=== PATIENT | male | born 1940 | race Caucasian/White ===

== ENCOUNTER → 2018-04-06 | Outpatient (CLI) | END | disposition home or self-care (01) ==

== ENCOUNTER 2018-04-16 06:32 | Observation (INO) | payer MEDICARE, OTHER ==
[~2018-04-16] VITALS: Ht 172.7 cm; Wt 65.0 kg
[2018-04-16] VITALS (27 sets, daily range): BP systolic 95–157; BP diastolic 57–80; PULSE 44–64; RESP 12–23; Ht 172.7 cm; Wt 65.0 kg
[~2018-04-16 06:32] MED LIST: DEXT1CAP PO; LACT1CAP57 PO; LMFO1TAB PO; MEMA10TA PO; MIRT30TA PO; PANT40TA4 PO; PROP20TA4 PO; QUET100T PO; ZALE10CA PO
[2018-04-16] MEDS ORDERED: POLYMYXIN B 500000 UNIT INJ ONE (06:57)
[2018-04-16] MEDS ORDERED: DEXAMETHASONE 4 MG/ML 1 ML INJ IV ONE (07:00)
[2018-04-16] MEDS ORDERED: CLINDAMYCIN 900 MG/50 ML D5W IVPB IVPB ONE (07:00)
[2018-04-16] MEDS ORDERED: ACETAMINOPHEN 500 MG TAB PO ONE (07:00)
[2018-04-16] MEDS ORDERED: CLINDAMYCIN 600 MG/D5W (PMX) 50 ML IVPB ONE (07:00)
[2018-04-16] MEDS ORDERED: LACTATED RINGER'S 1,000 ML IV SCH (07:00)
[2018-04-16] MEDS ORDERED: BACITRACIN 50000 UNITS INJ ONE (07:11)
[2018-04-16] MEDS ORDERED: ACETAMINOPHEN 1000MG/100ML IV 100 ML IVPB SCH (08:00)
[2018-04-16] MEDS ORDERED: NALOXONE (0.4 MG/ML) INJ IV PRN ×2 (08:30→09:30)
[2018-04-16] MEDS ORDERED: ONDANSETRON 4 MG INJ IV PRN ×2 (08:30)
[2018-04-16] MEDS ORDERED: HYDROmorphONE 0.5 MG/0.5 ML SYG IV PRN ×2 (08:30)
[2018-04-16] MEDS ORDERED: hydrALAzine 20 MG INJ IV PRN (08:30)
[2018-04-16] MEDS ORDERED: MIDAZOLAM 1 MG/ML 2 ML INJ IV PRN (08:30)
[2018-04-16] MEDS ORDERED: KETOROLAC 30 MG INJ IV PRN (08:30)
[2018-04-16] MEDS ORDERED: TRANEXAMIC ACID 1,000 MG in D5W 100 ML AT INCISION X1 IVPB ONE (08:30)
[2018-04-16] MEDS ORDERED: LABETALOL HCL 20MG INJ IV PRN (08:30)
[2018-04-16] MEDS ORDERED: KETOROLAC 15 MG INJ IV PRN (08:30)
[2018-04-16] MEDS ORDERED: NALBUPHINE HCL (10 MG/1 ML) INJ IV PRN (08:30)
[2018-04-16] MEDS ORDERED: ALBUTEROL 0.083% (NEB) 2.5 MG/3 ML AMP HHN PRN (08:30)
[2018-04-16] MEDS ORDERED: FENTAnyl 50 MCG/ML VIAL IV PRN ×3 (08:30)
[2018-04-16] MEDS ORDERED: EPHEDrine SULFATE 50 MG/5 ML SYG IV PRN (08:30)
[2018-04-16] MEDS ORDERED: IPRATROPIUM (NEB) 0.5 MG/2.5 ML AMP HHN PRN (08:30)
[2018-04-16] MEDS ORDERED: OXYCODONE/ACETAMINOPHEN (5/325) TAB PO PRN ×2 (08:30)
[2018-04-16] MEDS ORDERED: DIPHENHYDRAMINE 50 MG INJ IV PRN ×3 (08:30→09:30)
[2018-04-16] MEDS ORDERED: TRIMETHOBENZAMIDE 100 MG/ML VIAL IM PRN ×2 (08:30)
[2018-04-16] MEDS ORDERED: MEPERIDINE 25 MG INJ IV PRN (08:30)
[2018-04-16] MEDS ORDERED: HYDROmorphONE 1 MG/5 ML IV SYRINGE IV PRN ×3 (08:30)
--- NOTE | 2018-04-16 08:33 | PREAC ---
Date/Time of Note Date/Time of Note DATE: 04/16/18 TIME: 08:29 Anesthesia Eval and Record Evaluation Time Pre-Procedure Interview DATE: 04/16/18 TIME: 08:29 Age 77 Sex male NPO: 8 hrs Preoperative diagnosis RIGHT KNEE PRIMARY OA Planned procedure RIGHT TKA Past Medical History Past Medical History: Includes Endo: Hypothyroid Renal: CKD GI: GERD Surgery & Anesthesia Issues No known issue Meds Anticoagulation: No Beta William within 24 hr: No Reason Beta William not given: Pt. not on B-William Reported Medications Propranolol Hcl* (Propranolol Hcl*) 20 Mg Tablet, 20 MG PO HS, TAB 04/06/18 Zaleplon (Zaleplon) 10 Mg Capsule, 10 MG PO HS PRN for INSOMNIA, CAP 04/06/18 Quetiapine Fumarate* (Seroquel*) 100 Mg Tablet, 100 MG PO HS, #30 TAB 04/06/18 Mirtazapine* (Remeron*) 30 Mg Tablet, 30 MG PO DAILY, TAB 04/06/18 Memantine* (Namenda*) 10 Mg Tablet, 10 MG PO BID, #60 TAB 04/06/18 Lmfol Ca/Acetyl/Mb12/Algal Oil (CEREFOLIN NAC CAPLET) 1 Each Tablet, 1 EACH PO, TAB 04/06/18 Lactobacillus Rhamnosus* (Culturelle*) 1 Each Cap.sprink, 1 CAP PO DAILY, CAP 04/06/18 Pantoprazole* (Pantoprazole*) 40 Mg Tablet.dr, 40 MG PO BID, TAB 04/06/18 Dextromethorphan Hbr/Quinidine (NUEDEXTA 20-10 MG CAPSULE) 1 Each Capsule, 1 EACH PO, CAP 04/06/18 Current Medications Lactated Ringer's 1,000 ml @ 125 mls/hr Q8H IV ; Start 04/16/18 at 07:00 Tranexamic Acid 1000 mg/Dextrose 110 ml @ 330 mls/hr AT INCISION ONCE IVPB ; Start 04/16/18 at 08:30; Stop 04/16/18 at 08:49 Tranexamic Acid 1000 mg/Dextrose 110 ml @ 330 mls/hr AT CLOSURE ONCE IVPB ; Start 04/16/18 at 11:00; Stop 04/16/18 at 11:19 Ropivacaine/ Clonidine/ Epinephrine/ Ketorolac Tromethamine/ Sodium Chloride INTRA-OP ONCE IRR ; Start 04/16/18 at 08:30; Stop 04/16/18 at 08:31 Acetaminophen 100 ml @ 400 mls/hr ONCE IVPB Last administered on 04/16/18at 07:49; Admin Dose 400 MLS/HR; Start 04/16/18 at 08:00; Stop 04/16/18 at 11:00 Meds reviewed: Yes Allergies Coded Allergies: Penicillins (Verified Allergy, Severe, TONGUE SWELLING, 04/16/18) Allergies Reviewed: Yes Labs/Studies Labs Reviewed: Reviewed by anesthesiologist Blood Bank Test 04/16/18 07:20 Blood Type A POSITIVE test: N/A Studies: ECG (LVH), CXR (NAPD) Pre-procedure Exam Last vitals Vital Signs Date Temp Pulse Resp B/P (MAP) Pulse Ox O2 O2 Flow FiO2 Time Delivery Rate 04/16/18 97.3 47 18 110/62 98 Room Air 07:33 (78) Airway: Adequate mouth opening, Adequate thyromental dist Mallampati: Mallampati II Teeth: Normal Lung: Normal Heart: Normal ASA Physical Status ASA physical status: 2 Emergency: None Planned Anesthetic General/MAC: ETT Neuraxial: Spinal Nerve block: Femoral (right) Planned Pain Management Sub-arachniod narcotics, Single shot nerve block, Parenteral pain med Pre-operative Attestations Prior to commencing anesthesia and surgery, the patient was re-evaluated, there was verification of: *The patient's identity *The results of appropriate recent lab work and preoperative vital signs *The above evaluation not changing prior to induction *Anesthetic plan, risk benefits, alternative and complications discussed with patient/family; questions answered; patient/family understands, accepts and wishes to proceed. Kenneth Headley M.D. Apr 16, 2018 08:33
[2018-04-16] MEDS ORDERED: ONDANSETRON 4 MG INJ ONE (08:35)
[2018-04-16] MEDS ORDERED: PROPOFOL 20 ML ONE (08:35)
[2018-04-16] MEDS ORDERED: ROCURONIUM 50 MG INJ ONE (08:35)
[2018-04-16] MEDS ORDERED: CEFAZOLIN 1 GM INJ ONE (08:35)
[2018-04-16] MEDS ORDERED: MIDAZOLAM 1 MG/ML 2 ML INJ ONE (08:35)
[2018-04-16] MEDS ORDERED: NEOSTIGMINE 3 MG/3 ML SYRINGE ONE (08:35)
[2018-04-16] MEDS ORDERED: FENTAnyl 50 MCG/ML VIAL ONE (08:35)
[2018-04-16] MEDS ORDERED: GLYCOPYRROLATE 0.4 MG INJ ONE (08:35)
[2018-04-16] MEDS ORDERED: ROPIVACAINE 0.5 % 30 ML VIAL ONE (08:40)
[2018-04-16] MEDS ORDERED: morphine SULFATE/PF (10 MG/10 ML) INJ ONE (08:40)
--- NOTE | 2018-04-16 09:11 | HPN ---
Date/Time of Note Date/Time of Note DATE: 04/16/18 TIME: 09:11 Interval H&P Admission Note Pt. seen H&P reviewed: No system changes SHEYLA CANADA Apr 16, 2018 09:11
--- NOTE | 2018-04-16 09:29 | PDOCDIS ---
Discharge Instructions DIAGNOSIS Discharge Diagnosis Status post right total knee arthroplasty CONDITION [id number] Patient Condition: [id number] Good HOME CARE INSTRUCTIONS: [id number] Diet Instructions: [id number] Regular ACTIVITY: [id number] Activity Restrictions: [id number] Slowly Increase Activity Rest between Activity Avoid heavy lifting No Sexual Activity Do not Drive Do not operate Machinery Do not operate Power Tool Avoid Heavy Housework Keep Limb Elevated (2-3 pillows underneath the right foot only so that leg remains in full extension while resting.) Weight Bearing (Weight-bear as tolerated using front-wheeled walker) [id number] Bathing Restrictions: [id number] Shower (Prineo dressing to remain on until seen postoperatively. Okay to shower with this dressing. No bathing or submersion in water.) FOLLOW UP/APPOINTMENTS Follow-up Plan Follow-up at postoperative appointment provided to you at your preoperative exam SAMEERA ROMERO PA-C Apr 16, 2018 09:29
[2018-04-16] MEDS ORDERED: ASPIRIN (EC) 325 MG TAB PO ONE (09:30)
[2018-04-16] MEDS ORDERED: NA PHOSPHATE/BIPHOS 133 ML ENEMA PR PRN (09:30)
[2018-04-16] MEDS ORDERED: SENNA/DOCUSATE NA (8.6MG/50MG) TAB PO PRN (09:30)
[2018-04-16] MEDS ORDERED: MAGNESIUM HYDROXIDE 30ML CUP PO PRN (09:30)
[2018-04-16] MEDS ORDERED: NACL 0.9% 3 ML SYG IV SCH (09:30)
[2018-04-16] MEDS ORDERED: BISACODYL 10 MG SUPP PR PRN (09:30)
[2018-04-16] MEDS ORDERED: oxyCODONE 5 MG TAB PO PRN ×3 (09:30)
[2018-04-16] MEDS ORDERED: DOCUSATE SODIUM 100 MG CAP PO ONE (09:30)
--- NOTE | 2018-04-16 10:32 | SIPON ---
Date/Time of Note Date/Time of Note DATE: 04/16/18 TIME: 10:30 Operative Report Preoperative Diagnosis right knee DJD Postoperative Diagnosis same Operation/Procedure Performed Right TKA Surgeon see signature line therapeutic recreation assistant Francisco STARR Anesthesia: spinal Estimated blood loss: 150 - 200 ml's Transfusion Required none Specimen bone Grafts/Implants Attune knee, 6 femur, 7 tibia, 10 poly, 38 patella Complications none SHEYLA CANADA Apr 16, 2018 10:32
[2018-04-16] MEDS ORDERED: TRANEXAMIC ACID 1,000 MG in D5W 100 ML AT CLOSURE X1 IVPB ONE (11:00)
--- NOTE | 2018-04-16 11:00 | NUR ---
NURSING RR RECEIVED PT FROM OR NOT IN ANY DISTRESS ,PT S/P RIGHT TOTAL KNEE REPLACEMENT .NEURO VASCULAR CHECK DONE AND IT IS WNL .PT HAS DSG ON TO R KNEE WITH [facility] .IV TO LEFT HAND G20 NEEDLE WITH LR INFUSING WELL .DENIES ANY PIN OR DISCOMFORT AT THIS MOMENT .
--- NOTE | 2018-04-16 11:12 | PAC ---
Date/Time of Note Date/Time of Note DATE: 04/16/18 TIME: 11:11 Post-Anesthesia Notes Post-Anesthesia Note Last documented vital signs Vital Signs Date Temp Pulse Resp B/P (MAP) Pulse Ox O2 O2 Flow FiO2 Time Delivery Rate 04/16/18 97.3 47 18 110/62 98 Room Air 07:33 (78) Activity: WNL Respiratory function: WNL Cardiovascular function: WNL Mental status: Baseline Pain reasonably controlled: Yes Hydration appropriate: Yes Nausea/Vomiting absent: Yes Comments VSS Temp 98F RICH HIGUERA DRY WALL APPLICATOR Apr 16, 2018 11:12
--- NOTE | 2018-04-16 12:15 | NUR ---
TRANSFER PT TRANSFER TO [facility] IN STABLE CONDITION ,REPORT GIVEN TO RN CARE PROVIDED PER [facility] STANDARDS. PT WAS BRADYCARDIC UPON TRANSFER BUT ASYMPTOMATIC WAS EVALUATED BY CAROL GODFREY IN RECOVERY ROOM AND SHE OK PATIENT TO BE TRANSFERRED TO M/S FLOOR .
[2018-04-16] MEDS: SOD CHLORIDE 0.9% 1,000 ML IV SCH (12:35)
--- NOTE | 2018-04-16 12:47 | NUR ---
Patient has arrived to 4W. he is alert and pleasantly confused, requires frequent reorientation. Heart rate from 48-52 per continuous monitor. Patient reports this is his norm. BOILERMAKER LOFTSMAN Johnson checked with Dr. Dejesus prior to unit transfer and this report writer spoke with CAROL Lopez, who reported patient was ok to transfer to unit with heart rate as this is his normal. Patient oriented to unit, tolerating po fluids, Called dietary to request lunch tray. Used IS, able to reach 2000ml, will require reminders as patient is pleasantly forgetful. Bed in low, locked position. Addendum: 04/16/18 at 1251 by ILIANA VIERA RN Oriented to call light and room. Bed is close to nurses station.
--- NOTE | 2018-04-16 12:58 | CONS ---
Date/Time of Note Date/Time of Note DATE: 04/16/18 TIME: 12:55 Assessment/Plan Assessment/Plan Hospital Course SUBJECTIVE: Doing in bed comfortably. No acute distress. OBJECTIVE: Vital signs-see below PHYSICAL EXAM: Constitutional: Well-developed, adequately built, lying in bed comfortably. Psych: nl mood/affect, no complaints Head: atraumatic, normocephalic Eyes: nl conjunctiva, nl sclera ENMT: mucosa pink and moist, nl external ears & nose Neck: non-tender, supple Respiratory: clear to auscultation, normal air movement Cardiovascular: nl pulses, regular rate and rhythm Gastrointestinal: non-tender, soft, bowel sounds active in all 4 quadrants. Musculoskeletal/extremities: nl extremities to inspection, motor strength equal bilaterally, no focal deficit. Normal pulses,no cyanosis, no edema. Neurological: Alert oriented 3,nl speech, nl strength Skin: nl turgor ASSESSMENT/PLAN: 77-year-old male with dementia, symptomatic bradycardia, right knee DJD, brought in for elective right total knee arthroplasty. 1. Right knee degenerative joint disease, status post right total knee arthroplasty 04/16/2018. -Postoperative anticoagulation, weightbearing, pain management per orthopedic surgery. 2. Asymptomatic bradycardia -Patient's heart rate is at baseline or even better. No workup indicated. Di scontinue propranolol that patient takes at home for unclear reasons. 3. Dementia -Resume home medications DVT prophylaxis: Aspirin per orthopedic surgery recommendation Due to prophylaxis: Protonix CODE STATUS: Full code Diet: Regular Thank you for allowing us to partake in the care of this patient. Approximately 60 m spent on this consultation. Patient was seen in collaboration with Dr. Blackmon. Consultation Date/Type/Reason Admit Date/Time Apr 16, 2018 at 09:30 Type of Consult Hospitalist Reason for Consultation medical management Requesting Provider: SHEYLA CANADA Hx of Present Illness This is a 77-year-old male with a history of dementia, right knee degenerative joint disease, was brought in for elective right total knee arthroplasty. Patient underwent right total knee arthroplasty on 04/16/2018. Hospitalist consultation was requested for postoperative medical management. Patient was seen postoperatively in PACU. He denied chest pain, palpitation, shortness of breath, nausea, vomiting, abdominal pain, dizziness, numbness, tingling or other constitutional symptoms. Patient's EKG shows sinus bradycardia at 47-50 and per patient his baseline heart rate is 40. He is not symptomatic. Stable blood pressure and oxygen saturation. A 12 point review of system was assessed and is negative other than what is mentioned in the HPI. Past Medical History See HPI Medications Current Medications Oxycodone/ Acetaminophen (Percocet (5/ 325)) 1 tab PACU ORDER PRN PO PAIN LEVEL 1-5; Start 04/16/18 at 08:30; Stop 04/16/18 at 20:00 Oxycodone/ Acetaminophen (Percocet (5/ 325)) 2 tab PACU ORDER PRN PO PAIN LEVEL 6-10; Start 04/16/18 at 08:30; Stop 04/16/18 at 20:00 Ondansetron HCl (Zofran Inj) 4 mg PACU ORDER PRN IV NAUSEA AND/OR VOMITING Last administered on 04/16/18at 11:26; Admin Dose 4 MG; Start 04/16/18 at 08:30; Stop 04/16/18 at 20:00 Trimethobenzamide HCl (Tigan) 200 mg PACU ORDER PRN IM NAUSEA AND/OR VOMITING; Start 04/16/18 at 08:30; Stop 04/16/18 at 20:00 Labetalol HCl (Labetalol) 5 mg PACU ORDER PRN IV ELEVATED BLOOD PRESSURE; Start 04/16/18 at 08:30; Stop 04/16/18 at 20:00 Hydralazine HCl (Apresoline) 5 mg PACU ORDER PRN IV ELEVATED BLOOD PRESSURE; Start 04/16/18 at 08:30; Stop 04/16/18 at 20:00 Hydromorphone HCl (Dilaudid) 0.4 mg Q2H PRN IV PAIN LEVEL 1-5; Start 04/16/18 at 08:30 Hydromorphone HCl (Dilaudid) 0.6 mg Q2H PRN IV PAIN LEVEL 6-10; Start 04/16/18 at 08:30; Stop 04/16/18 at 20:00 Ketorolac Tromethamine (Toradol) 30 mg Q6H PRN IV PAIN LEVEL 6-10; Start 04/16/18 at 08:30; Stop 04/19/18 at 08:29 Ketorolac Tromethamine (Toradol) 15 mg Q6H PRN IV PAIN LEVEL 6-10; Start 04/16/18 at 08:30; Stop 04/19/18 at 08:29 Diphenhydramine HCl (Benadryl) 25 mg Q4H PRN IV PRURITUS; Start 04/16/18 at 08:30; Stop 04/16/18 at 20:00 Nalbuphine HCl (Nubain) 10 mg Q4H PRN IV PRURITUS; Start 04/16/18 at 08:30; Stop 04/16/18 at 20:00 Ondansetron HCl (Zofran Inj) 4 mg Q6H PRN IV NAUSEA AND/OR VOMITING; Start 04/16/18 at 08:30; Stop 04/16/18 at 20:00 Trimethobenzamide HCl (Tigan) 200 mg Q6H PRN IM NAUSEA AND/OR VOMITING; Start 04/16/18 at 08:30; Stop 04/16/18 at 20:00 Naloxone HCl (Narcan) 0.2 mg Q2M PRN IV DECREASED REPIRATORY RATE; Start 04/16/18 at 08:30; Stop 04/16/18 at 20:00 Miscellaneous Information (* Miscellaneous Pharmacy Order) DURAMORPH: 0.1 MG SPI... GIVEN NEURAXIAL XX ; Start 04/16/18 at 08:30; Stop 04/16/18 at 20:00 Sodium Chloride 1,000 ml @ 80 mls/hr [id number] IV Last administered on 04/16/18at 12:35; Admin Dose 80 MLS/HR; Start 04/16/18 at 09:30 IV Flush (NS 3 ml) 3 ml PER PROTOCOL IV ; Start 04/16/18 at 09:30 Oxycodone HCl (Roxicodone) 15 mg Q4H PRN PO PAIN; Start 04/16/18 at 09:30 Oxycodone HCl (Roxicodone) 10 mg Q4H PRN PO PAIN; Start 04/16/18 at 09:30 Oxycodone HCl (Roxicodone) 5 mg Q4H PRN PO PAIN; Start 04/16/18 at 09:30 Ondansetron HCl (Zofran Inj) 4 mg Q4H PRN IV NAUSEA AND/OR VOMITING; Start 04/17/18 at 09:30 Vancomycin HCl 250 ml @ 125 mls/hr Q12H IVPB ; Start 04/16/18 at 18:00; Stop 04/17/18 at 07:59 Celecoxib (Celebrex) 100 mg BID PO ; Start 04/17/18 at 09:00 Gabapentin (Neurontin) 100 mg TID PO ; Start 04/16/18 at 13:00 Pantoprazole (Protonix Tab) 40 mg DAILY@06 PO ; Start 04/18/18 at 06:00 Docusate Sodium (Colace) 200 mg BID PO ; Start 04/17/18 at 09:00; Stop 04/20/18 at 08:59 Simethicone (Mylicon) 80 mg TID PRN PO DISTENSION/GAS/BLOATING; Start 04/16/18 at 09:30 Senna/Docusate Sodium (Senokot-S) 2 tab BID PRN PO CONSTIPATION; Start 04/16/18 at 09:30 Magnesium Hydroxide (Milk Of Mag) 30 ml HS PRN PO CONSTIPATION; Start 04/16/18 at 09:30 Bisacodyl (Dulcolax Supp) 10 mg DAILY PRN [place] CONSTIPATION; Start 04/16/18 at 09:30 Sodium Biphosphate/ Sodium Phosphate (Fleet Enema) 133 ml DAILY PRN NH CONSTIPATION; Start 04/16/18 at 09:30 Diphenhydramine HCl (Benadryl) 25 mg Q4H PRN IV ITCHING; Start 04/16/18 at 09:30 Naloxone HCl (Narcan) 0.2 mg Q2M PRN IV DECREASED REPIRATORY RATE; Start 04/16/18 at 09:30 Bethanechol Chloride (Urecholine) 25 mg URINARY CATH D/C PRN PO UNABLE TO VOID; Start 04/16/18 at 09:30 Aspirin (Ecotrin) 325 mg DAILY PO ; Start 04/17/18 at 09:00 Allergies: Coded Allergies: Penicillins (Verified Allergy, Severe, TONGUE SWELLING, 04/16/18) Past Surgical History See HPI Social History Denied history of alcohol, smoking or illicit drug use. Smoking Status: Never smoker Exam/Review of Systems Vital Signs Vitals Vital Signs Date Temp Pulse Resp B/P (MAP) Pulse Ox O2 O2 Flow FiO2 Time Delivery Rate 04/16/18 98.0 12:13 04/16/18 53 20 122/75 96 Nasal 2.0 12:10 (91) Cannula Medications Medications Current Medications Oxycodone/ Acetaminophen (Percocet (5/ 325)) 1 tab PACU ORDER PRN PO PAIN LEVEL 1-5; Start 04/16/18 at 08:30; Stop 04/16/18 at 20:00 Oxycodone/ Acetaminophen (Percocet (5/ 325)) 2 tab PACU ORDER PRN PO PAIN LEVEL 6-10; Start 04/16/18 at 08:30; Stop 04/16/18 at 20:00 Ondansetron HCl (Zofran Inj) 4 mg PACU ORDER PRN IV NAUSEA AND/OR VOMITING Last administered on 04/16/18at 11:26; Admin Dose 4 MG; Start 04/16/18 at 08:30; Stop 04/16/18 at 20:00 Trimethobenzamide HCl (Tigan) 200 mg PACU ORDER PRN IM NAUSEA AND/OR VOMITING; Start 04/16/18 at 08:30; Stop 04/16/18 at 20:00 Labetalol HCl (Labetalol) 5 mg PACU ORDER PRN IV ELEVATED BLOOD PRESSURE; Start 04/16/18 at 08:30; Stop 04/16/18 at 20:00 Hydralazine HCl (Apresoline) 5 mg PACU ORDER PRN IV ELEVATED BLOOD PRESSURE; Start 04/16/18 at 08:30; Stop 04/16/18 at 20:00 Hydromorphone HCl (Dilaudid) 0.4 mg Q2H PRN IV PAIN LEVEL 1-5; Start 04/16/18 at 08:30 Hydromorphone HCl (Dilaudid) 0.6 mg Q2H PRN IV PAIN LEVEL 6-10; Start 04/16/18 at 08:30; Stop 04/16/18 at 20:00 Ketorolac Tromethamine (Toradol) 30 mg Q6H PRN IV PAIN LEVEL 6-10; Start 04/16/18 at 08:30; Stop 04/19/18 at 08:29 Ketorolac Tromethamine (Toradol) 15 mg Q6H PRN IV PAIN LEVEL 6-10; Start 04/16/18 at 08:30; Stop 04/19/18 at 08:29 Diphenhydramine HCl (Benadryl) 25 mg Q4H PRN IV PRURITUS; Start 04/16/18 at 08:30; Stop 04/16/18 at 20:00 Nalbuphine HCl (Nubain) 10 mg Q4H PRN IV PRURITUS; Start 04/16/18 at 08:30; Stop 04/16/18 at 20:00 Ondansetron HCl (Zofran Inj) 4 mg Q6H PRN IV NAUSEA AND/OR VOMITING; Start 04/16/18 at 08:30; Stop 04/16/18 at 20:00 Trimethobenzamide HCl (Tigan) 200 mg Q6H PRN IM NAUSEA AND/OR VOMITING; Start 04/16/18 at 08:30; Stop 04/16/18 at 20:00 Naloxone HCl (Narcan) 0.2 mg Q2M PRN IV DECREASED REPIRATORY RATE; Start 04/16/18 at 08:30; Stop 04/16/18 at 20:00 Miscellaneous Information (* Miscellaneous Pharmacy Order) DURAMORPH: 0.1 MG SPI... GIVEN NEURAXIAL XX ; Start 04/16/18 at 08:30; Stop 04/16/18 at 20:00 Sodium Chloride 1,000 ml @ 80 mls/hr [id number] IV Last administered on 04/16/18at 12:35; Admin Dose 80 MLS/HR; Start 04/16/18 at 09:30 IV Flush (NS 3 ml) 3 ml PER PROTOCOL IV ; Start 04/16/18 at 09:30 Oxycodone HCl (Roxicodone) 15 mg Q4H PRN PO PAIN; Start 04/16/18 at 09:30 Oxycodone HCl (Roxicodone) 10 mg Q4H PRN PO PAIN; Start 04/16/18 at 09:30 Oxycodone HCl (Roxicodone) 5 mg Q4H PRN PO PAIN; Start 04/16/18 at 09:30 Ondansetron HCl (Zofran Inj) 4 mg Q4H PRN IV NAUSEA AND/OR VOMITING; Start 04/17/18 at 09:30 Vancomycin HCl 250 ml @ 125 mls/hr Q12H IVPB ; Start 04/16/18 at 18:00; Stop 04/17/18 at 07:59 Celecoxib (Celebrex) 100 mg BID PO ; Start 04/17/18 at 09:00 Gabapentin (Neurontin) 100 mg TID PO ; Start 04/16/18 at 13:00 Pantoprazole (Protonix Tab) 40 mg DAILY@06 PO ; Start 04/18/18 at 06:00 Docusate Sodium (Colace) 200 mg BID PO ; Start 04/17/18 at 09:00; Stop 04/20/18 at 08:59 Simethicone (Mylicon) 80 mg TID PRN PO DISTENSION/GAS/BLOATING; Start 04/16/18 at 09:30 Senna/Docusate Sodium (Senokot-S) 2 tab BID PRN PO CONSTIPATION; Start 04/16/18 at 09:30 Magnesium Hydroxide (Milk Of Mag) 30 ml HS PRN PO CONSTIPATION; Start 04/16/18 at 09:30 Bisacodyl (Dulcolax Supp) 10 mg DAILY PRN NH CONSTIPATION; Start 04/16/18 at 09:30 Sodium Biphosphate/ Sodium Phosphate (Fleet Enema) 133 ml DAILY PRN NH CONSTIPATION; Start 04/16/18 at 09:30 Diphenhydramine HCl (Benadryl) 25 mg Q4H PRN IV ITCHING; Start 04/16/18 at 09:30 Naloxone HCl (Narcan) 0.2 mg Q2M PRN IV DECREASED REPIRATORY RATE; Start 04/16/18 at 09:30 Bethanechol Chloride (Urecholine) 25 mg URINARY CATH D/C PRN PO UNABLE TO VOID; Start 04/16/18 at 09:30 Aspirin (Ecotrin) 325 mg DAILY PO ; Start 04/17/18 at 09:00 JENNA ARGUETA NP Apr 16, 2018 12:58
--- NOTE | 2018-04-16 13:30 | NUR ---
PT evaluation Therapy day number 1 Evaluation Start Time 13:30 Evaluation End Time 14:25 Evaluation Total Time 55 min Subjective Denies pain Pain Scale NUMERIC Pain Intensity 0 (0-10) Patient Stated Goal for Pain Relief 0 (0-10) Pain Level Comment denies pain Pre Treatment Vital Signs Stable Yes Supine to Sit Supervised Transfer Sit to Stand Ability Supervised Bed Mobility Sit to Supine Supervised Bed Transfer Ability Supervised Chair Transfer Ability Supervised Additional Mobility Comments required use of FWW Gait Assist Levels Minimum Assist Assistive Devices Front Wheel Walker Ambulation Distance 200 feet Additional Gait Comments min A due to impulsivity and safety, requires FWW Weight Bearing Assessment Label Right Lower Extremity Weight Bearing Status Weight Bearing as Luis Static Sitting Balance Fair Dynamic Sitting Balance Fair Standing Static Balance Fair Dynamic Standing Balance Fair Safety Judgement Poor Activity Tolerance Good Equipment Present A pump IV pump Post Treatment Pain Intensity 0 0-10 Additional Post Treatment Comment see note Total Minutes 53 Total Units 4 PT Technical Record Comment 77 yo male presents s/p R TKA secondary to R knee DJD PMH: dementia, symptomatic bradycardia, right knee DJD Precaution: fall risk, WBAT RLE PLOF: patient reports living in 2nd level [facility] with 3 stairs to enter. Single railing. Patient mod I with no assistive device nor has assistive devices available. S: Patient in bed, agreeable to PT evaluation. pt cleared for activity per RN O: PT evaluation completed, pt returned back to bed following therapy intervention with call light within reach and bed alarm activated. Spoke to RN regarding pt response to activity and PT plan of care. No reports of pain, dizziness, or shortness of breath with activity. Mild "indigestion" with change in postion. 2P present for safety A: Patient presents with fair mobility throughout however limited secondary to safety awareness and impulsivity. Pt consistantly follows 1 step commands but ambulates with moderate reliance on FWW with mild antalgic gait secondary to lack of terminal knee extension with heel strike. Patient could benefit from skilled inpatient PT to improve strength, safety, and functional mobility Recommendation: patient will require FWW for mobility, defer discharge disposition to MD P: progress safety with gait, stair training when able
--- NOTE | 2018-04-16 14:37 | OPR ---
Date/Time of Note Date/Time of Note DATE: 04/16/18 TIME: 14:34 Operative Report Procedure Date: Apr 16, 2018 Preoperative Diagnosis Right knee osteoarthritis Postoperative Diagnosis Same Operation/Procedure Performed Right total knee replacement Surgeon see signature line Chief Pharmacist YAMILEX graham Anesthesia Type: spinal Estimated Blood Loss: 150 - 200 ml's Transfusion none Specimen Bone Grafts/Implants Germán knee, size 6 femur, size 7 tibia, size 10 polyethylene, 38 patella Tubes/Drains None Complications none Pt Condition Post Procedure: stable Disposition: PACU Indications Patient is a 77-year-old male with advanced osteoarthritis of his right knee Procedure Description Patient was placed supine on the operating room table. All bony points were well-padded. The right knee was approached anteriorly. A mid vastus approach was made in the patella displaced laterally without everting it. Hemostasis was achieved with electrocautery and aqua mantis. Using intramedullary alignment, the distal femoral cut was made in 5 degrees of valgus. The femur was measured to be a size 6. The 6 cutting block was placed anterior posterior and chamfer cuts were made. A notch was cut in the distal femur to accommodate the poste rior stabilized femoral component. PCL was sacrificed and remnants of the menisci were removed. The tibia was cut using external alignment and the patella cut using a freehand technique. Trials were inserted and found to be well fitting. The knee had full range of motion from 0-130 degrees with good balance and tracking. X-rays confirm proper alignment of the implants. Once s atisfactory alignment was confirmed, the trials were removed the knee was thoroughly irrigated and injected with pain cocktail. Final components were cemented in place including a 6 femur, 7 tibia 38 patella and 10 mm of polyethylene. Excess cement was removed. The knee was carried through a full range of motion. The knee was closed in layers using #1 strata fix for deep fascia, 2-0 Vicryl for subcutaneous tissue and 3-0 Monocryl for the skin. Patient was transferred to the recovery room in stable condition SHEYLA CANADA Apr 16, 2018 14:37
--- NOTE | 2018-04-16 14:46 | NUR ---
Patient had a bout of nausea with emesis after drinking water. Given Zofran. Alert and pleasantly forgetful, reports he has no pain.
[2018-04-16] MEDS: GABAPENTIN 100 MG CAP PO SCH ×2 (14:53→21:33)
--- NOTE | 2018-04-16 15:09 | NUR ---
OT NOTE Attempted to see pt for OT evaluation. RN asked that OT return at a later time as pt just finished with PT. Will try back later.
[2018-04-16] MEDS ORDERED: CALCIUM CARBONATE 750 MG CHEW TAB PO PRN (17:30)
[2018-04-16] MEDS: VANCOMYCIN 1 GM (PMX) 250 ML IVPB SCH (17:59)
[2018-04-16] MEDS: PANTOPRAZOLE (EC) 40 MG TAB PO SCH (17:59)
--- NOTE | 2018-04-16 19:00 | NUR ---
EOSS PATIENT IS PLEASANTLY FORGETFUL AND ALERT, DOES NOT REMEMBER HE HAD KNEE SURGERY. BULKY DRESSING AND POLAR CARE IN PLACE ON RIGHT KNEE. PATIENT DENIED PAIN THROGUHOUT SHIFT. HAD COMPLAINTS OF INDIGESTIONS AND VOMITED TWICE DUE TO INDIGESTION. ZOFRAN GIVEN WITHOUT RELIEF; NEW ORDER FOR PROTONIX TWICE A DAY AND TUMS GIVEN WITH RELIEF. REMAINED ON CLEAR LIQUID DIET DUE TO EMESIS AND INDIGESTION. ENDORSED TO [facility] NURSE TO REASSESS IF PATIENT CAN TOLERATE REGULAR DIET IN THE AM. REQUIRED FREQUENT ROUNDING, MORE THAN HOURLY, TO CHECK ON PATIENT HE DOES NOT CALL WITH NEEDS. PATIENT DOES NOT RECALL TO USE THE CALL WILDE OR TELEPHONE FOR NEEDS. CAME AND ASSISTED RN TO ENSURE PATIENT PRACTICED IS 10 TIMES AN HOUR. HEART RATE REMAINS IN THE 40-60'S. BED KEPT IN LOW, LOCKED POSITION, CALL LIGHT WITHIN REACH, MORE THAN HOURLY ROUNDING PERFORMED.
[2018-04-16] MEDS ORDERED: QUETIAPINE 100 MG TAB PO SCH (21:00)
[2018-04-16] MEDS: MEMANTINE 10 MG TAB PO SCH (21:33)
[2018-04-17] MEDS ORDERED: ZOLPIDEM 5 MG TAB PO PRN (00:30)
[2018-04-17] MEDS: BETHANECHOL 25 MG TAB PO PRN ×2 (00:33→05:08)
[2018-04-17] MEDS: SOD CHLORIDE 0.9% 1,000 ML IV SCH (00:34)
[2018-04-17 00:41] VITALS: BP 129/70; PULSE 65; RESP 18
[2018-04-17 05:00] VITALS: BP 123/74; PULSE 62; RESP 18
[2018-04-17] MEDS: VANCOMYCIN 1 GM (PMX) 250 ML IVPB SCH (05:07)
[2018-04-17] MEDS: PANTOPRAZOLE (EC) 40 MG TAB PO SCH (05:08)
--- NOTE | 2018-04-17 06:01 | NUR ---
END OF SHIFT NOTE: PATIENT IS A AND O X 4; NOT IN DISTRESS. VS IS WNL; ALL MEDICATIONS HAVE BEEN GIVEN ORDERED AND PRN; ALL NEEDS ATTENDED; CALL LIGHT WITHIN REACH ; WILL ENDORSE TO THE DAY SHIFT RN
[2018-04-17 07:39] VITALS: BP 131/64; PULSE 63; RESP 18
--- NOTE | 2018-04-17 08:35 | NUR ---
OT EVAL: 77 yo male presents s/p R TKA secondary to R knee DJD PMH: dementia, symptomatic bradycardia, right knee DJD Precaution: fall risk, WBAT RLE PLOF: patient reports living in 2nd level [facility] with 3 stairs to enter. Single railing. Patient reported being independent with all ADl's prior to surgery. CLOF: RN cleared pt for skilled OT tx. Pt received supine in bed agreeable to tx stating 1/10 pain. Pt demonstrated BUE AROM WFL: MMT 4/5. Pt performed supine->sit at EOB with supervision. Seated at EOB pt donned socks independently without any AE. Pt performed functional mob and toilet transfer with Supervision using FWW. Pt then stood at bathroom sink with supervision while performing h/g independently. Pt returned back to bed with supervision. Pt left supine in bed with all needs met. RN notified. No Skilled OT warranted at this time as pt is Supervision/Mod I with ADl's. Recommend d/c Home when medically stable with FWW to ensure safety.
[2018-04-17] MEDS ORDERED: CELECOXIB 100 MG CAP PO SCH (09:00)
[2018-04-17] MEDS ORDERED: MIRTAZAPINE 15 MG TAB PO SCH (09:00)
[2018-04-17] MEDS ORDERED: DOCUSATE SODIUM 100 MG CAP PO SCH (09:00)
[2018-04-17] MEDS ORDERED: ASPIRIN (EC) 325 MG TAB PO SCH (09:00)
[2018-04-17] MEDS ORDERED: LACTOBACILLUS RHAMNOSUS CAP PO SCH (09:00)
--- NOTE | 2018-04-17 09:10 | NUR ---
PT note Therapy day number 2 Subjective Denies pain Pain Scale NUMERIC Pain Intensity 0 (0-10) Patient Stated Goal for Pain Relief 0 (0-10) Pain Level Comment denies pain Pre Treatment Vital Signs Stable Yes Exercise Assessment Label Right Lower Extremity Exercise Type Active ROM Additional Exercise Comments Per HEP and ther-ex in packet Exercise Start Time 09:10 Exercise End Time 09:25 Total Exercise Time 15 min (8-127) Supine to Sit Modified Independent Transfer Sit to Stand Ability Modified Independent Bed Mobility Sit to Supine Modified Independent Bed Transfer Ability Modified Independent Chair Transfer Ability Modified Independent Additional Mobility Comments with use of FWW Gait Training Start Time 09:25 Gait Assist Levels Modified Independent Assistive Devices None Front Wheel Walker Ambulation Distance 400 feet Additional Gait Comments Patient ambulates 150' with FWW mod I, 250' with no device, SBA Gait Training End Time 10:05 Total Gait Training Treatment Time 40 min (8-127) Weight Bearing Assessment Label Right Lower Extremity Weight Bearing Status Weight Bearing as Luis Number of Stairs 12 Stairs Additional Stairs Assist Comments 12 stairs L railing, step to gait, mod I Static Sitting Balance Good Dynamic Sitting Balance Good Standing Static Balance Good Dynamic Standing Balance Good Safety Judgement Fair Activity Tolerance Good Equipment Present A pump IV pump Polar Care Post Treatment Pain Intensity 0 0-10 Additional Post Treatment Comment See note Total Treament Time 55 min (8-127) Total Minutes 55 Total Units 4 PT Technical Record Comment S: Patient in bed, agreeable to PT intervention. Pt cleared for PT per RN. O: PT intervention completed, pt returned back to bed following therapy intervention with call light within reach and bed alarm activated. Spoke to RN regarding pt response to activity and PT plan of care. Patient educated on HEP, recovery, stair training, and safe use of FWW. Patient requested PT to contact to educate on pt response to activity and safe mobility with stairs. No reports of pain, dizziness, or shortness of breath with activity. A: Patient receptive to PT education and motivated to participate. Patient appears slightly forgetful but understanding of sequencing and able to ambulate without use of FWW. Recommended continued use of FWW for safety and limitations within open environment and pt receptive. Spouse receptive to education and appreciative of care. Patient demonstrates mod I mobility, and able to improve with routine care and thus does not require continues skilled inpatient PT at this time. P: Discharge physical therapy
--- NOTE | 2018-04-17 09:18 | PN ---
Date/Time of Note Date/Time of Note DATE: 04/17/18 TIME: 09:17 Assessment/Plan VTE Prophylaxis VTE Prophylaxis Intervention: ambulation, SCD's, other (Aspirin 325 mg) Lines/Catheters IV Catheter Type (from Nrsg): Peripheral IV Mc in Place (from Nrsg): No Assessment/Plan Assessment/Plan -Pain Meds as needed -ASA for DVT Prophylaxis x 4 weeks outpatient discussed. -Continue monitoring as outpatient on discharge -Follow-up at scheduled postop outpatient appointment or sooner if there is any issue. -Patient Stable -Discharge to Home with home health Subjective 24 Hr Interval Summary 77-year-old male postop day 1 status post right total knee arthroplasty. No acute overnight events. Denies any pain complaints. Initiated physical therapy yesterday ambulating about 200 feet. Denies any calf pain, chest pain/tightness or shortness of breath. Currently resting comfortably in bed with leg in full extension. Constitutional: no complaints Pain Control: well controlled Exam/Review of Systems Vital Signs Vitals Vital Signs Date Temp Pulse Resp B/P (MAP) Pulse Ox O2 O2 Flow FiO2 Time Delivery Rate 04/17/18 98.0 63 18 131/64 97 07:39 (86) 04/17/18 Room Air 05:00 04/16/18 2.0 12:30 Intake and Output 04/16/18 04/16/18 04/17/18 1515:00 23:00 07:00 IntakeIntake Total 2757.5 ml 1490 ml 1100 ml OutputOutput Total 75 ml 220 ml 450 ml BalanceBalance 2682.5 ml 1270 ml 650 ml Exam Free Text/Dictation -No complications with dressing intact. -5/5 Tibialis Anterior, EHL Gastrocnemius/Soleus and Peroneals -Normal Sensation -Palpable DP/PT, Capillary Refill <2 secs -No Distal Edema -Negative Yamileth Sign/No calf pain -Toes Freely Movable Constitutional: alert, oriented, well developed Results Result Diagram: 04/17/18 0442 04/17/18 044 SAMEERA ROMERO PA-C Apr 17, 2018 09:18
[2018-04-17] MEDS: GABAPENTIN 100 MG CAP PO SCH ×2 (09:24→14:57)
[2018-04-17] MEDS: MEMANTINE 10 MG TAB PO SCH (09:24)
[2018-04-17] MEDS ORDERED: ONDANSETRON 4 MG INJ IV PRN (09:30)
--- NOTE | 2018-04-17 09:50 | CONS ---
Date/Time of Note Date/Time of Note DATE: 04/17/18 TIME: 09:49 Assessment/Plan Assessment/Plan Hospital Course SUBJECTIVE: Patient is getting discharged home today. Stable heart rate. OBJECTIVE: Vital signs-see below PHYSICAL EXAM: Constitutional: Well-developed, adequately built, lying in bed comfortably. Psych: nl mood/affect, no complaints Head: atraumatic, normocephalic Eyes: nl conjunctiva, nl sclera ENMT: mucosa pink and moist, nl external ears & nose Neck: non-tender, supple Respiratory: clear to auscultation, normal air movement Cardiovascular: nl pulses, regular rate and rhythm Gastrointestinal: non-tender, soft, bowel sounds active in all 4 quadrants. Musculoskeletal/extremities: nl extremities to inspection, motor strength equal bilaterally, no focal deficit. Normal pulses,no cyanosis, no edema. Neurological: Alert oriented 3,nl speech, nl strength Skin: nl turgor ASSESSMENT/PLAN: 77-year-old male with dementia, symptomatic bradycardia, right knee DJD, brought in for elective right total knee arthroplasty. 1. Right knee degenerative joint disease, status post right total knee arthroplasty 04/16/2018. -Postoperative anticoagulation, weightbearing, pain management per orthopedic surgery. 2. Asymptomatic bradycardia, secondary to patient taking propranolol for unclear reasons. -Patient with stable heart rate. Recommend discontinuation of propranolol upon discharge. 3. Dementia -Continue home medications DVT prophylaxis: Aspirin per orthopedic surgery recommendation Due to prophylaxis: Protonix CODE STATUS: Full code Diet: Regular Agree with discharge plan. I have instructed patient not to take propranolol on discharge. This medicine has been discontinued from his discharge list. Patient was seen in collaboration with Dr. Blackmon. Result Diagram: 04/17/18 0442 04/17/18 0442 Results 24hrs Laboratory Tests Test 04/17/18 04:42 04/17/18 06:58 White Blood Count 10.8 Red Blood Count 4.06 L Hemoglobin 11.8 L Hematocrit 34.0 L Mean Corpuscular Volume 83.7 Mean Corpuscular Hemoglobin 29.1 Mean Corpuscular Hemoglobin Concent 34.7 Red Cell Distribution Width 14.1 Platelet Count 212 Mean Platelet Volume 9.9 Immature Granulocytes % 0.400 Neutrophils % 81.7 H Lymphocytes % 8.8 L Monocytes % 8.9 Eosinophils % 0.0 Basophils % 0.2 Nucleated Red Blood Cells % 0.0 Immature Granulocytes # 0.040 H Neutrophils # 8.8 H Lymphocytes # 1.0 Monocytes # 1.0 H Eosinophils # 0.0 Basophils # 0.0 Nucleated Red Blood Cells # 0.0 Sodium Level 137 Potassium Level 4.9 Chloride Level 103 Carbon Dioxide Level 25 Anion Gap 9 Blood Urea Nitrogen 23 H Creatinine 0.84 Est Glomerular Filtrat Rate mL/min Glucose Level 107 Calcium Level 8.6 Lab Scanned Report REFERENCE LAB Consultation Date/Type/Reason Admit Date/Time Apr 16, 2018 at 09:30 Initial Consult Date Type of Consult Hospitalist Requesting Provider: SHEYLA CANADA Exam/Review of Systems Vital Signs Vitals Vital Signs Date Temp Pulse Resp B/P (MAP) Pulse Ox O2 O2 Flow FiO2 Time Delivery Rate 04/17/18 98.0 63 18 131/64 97 07:39 (86) 04/17/18 Room Air 05:00 04/16/18 2.0 12:30 Intake and Output 04/16/18 04/16/18 04/17/18 1515:00 23:00 07:00 IntakeIntake Total 2757.5 ml 1490 ml 1100 ml OutputOutput Total 75 ml 220 ml 450 ml BalanceBalance 2682.5 ml 1270 ml 650 ml Medications Medications Current Medications Hydromorphone HCl (Dilaudid) 0.4 mg Q2H PRN IV PAIN LEVEL 1-5; Start 04/16/18 at 08:30 Ketorolac Tromethamine (Toradol) 30 mg Q6H PRN IV PAIN LEVEL 6-10; Start 04/16/18 at 08:30; Stop 04/19/18 at 08:29 Ketorolac Tromethamine (Toradol) 15 mg Q6H PRN IV PAIN LEVEL 6-10; Start 04/16/18 at 08:30; Stop 04/19/18 at 08:29; Status Hold Sodium Chloride 1,000 ml @ 80 mls/hr [id number] IV Last administered on 04/17at 00:34; Admin Dose 80 MLS/HR; Start 04/16/18 at 09:30 IV Flush (NS 3 ml) 3 ml PER PROTOCOL IV ; Start 04/16/18 at 09:30 Oxycodone HCl (Roxicodone) 15 mg Q4H PRN PO PAIN; Start 04/16/18 at 09:30 Oxycodone HCl (Roxicodone) 10 mg Q4H PRN PO PAIN; Start 04/16/18 at 09:30 Oxycodone HCl (Roxicodone) 5 mg Q4H PRN PO PAIN; Start 04/16/18 at 09:30 Ondansetron HCl (Zofran Inj) 4 mg Q4H PRN IV NAUSEA AND/OR VOMITING; Start 04/17/18 at 09:30 Celecoxib (Celebrex) 100 mg BID PO Last administered on 04/17/18at 09:24; Admin Dose 100 MG; Start 04/17/18 at 09:00 Gabapentin (Neurontin) 100 mg TID PO Last administered on 04/17/18at 09:24; Admin Dose 100 MG; Start 04/16/18 at 13:00 Docusate Sodium (Colace) 200 mg BID PO Last administered on 04/17/18at 09:25; Admin Dose 200 MG; Start 04/17/18 at 09:00; Stop 04/20/18 at 08:59 Simethicone (Mylicon) 80 mg TID PRN PO DISTENSION/GAS/BLOATING; Start 04/16/18 at 09:30 Senna/Docusate Sodium (Senokot-S) 2 tab BID PRN PO CONSTIPATION; Start 04/16/18 at 09:30 Magnesium Hydroxide (Milk Of Mag) 30 ml HS PRN PO CONSTIPATION Last administered on 04/17/18at 00:33; Admin Dose 30 ML; Start 04/16/18 at 09:30 Bisacodyl (Dulcolax Supp) 10 mg DAILY PRN [place] CONSTIPATION; Start 04/16/18 at 09:30 Sodium Biphosphate/ Sodium Phosphate (Fleet Enema) 133 ml DAILY PRN [place] CONSTIPATION; Start 04/16/18 at 09:30 Diphenhydramine HCl (Benadryl) 25 mg Q4H PRN IV ITCHING; Start 04/16/18 at 09:30 Naloxone HCl (Narcan) 0.2 mg Q2M PRN IV DECREASED REPIRATORY RATE; Start 04/16/18 at 09:30 Bethanechol Chloride (Urecholine) 25 mg URINARY CATH D/C PRN PO UNABLE TO VOID Last administered on 04/17/18at 05:08; Admin Dose 25 MG; Start 04/16/18 at 09:30 Aspirin (Ecotrin) 325 mg DAILY PO Last administered on 04/17/18 09:24; Admin Dose 325 MG; Start 04/17/18 at 09:00 Lactobacillus Acidophilus/ Rhamnosus (Culturelle) 1 cap DAILY PO Last administered on 04/17/18 09:24; Admin Dose 1 CAP; Start 04/17/18 at 09:00 Memantine (Namenda) 10 mg BID PO Last administered on 04/17/18 09:24; Admin Dose 10 MG; Start 04/16/18 at 21:00 Mirtazapine (Remeron) 30 mg DAILY PO Last administered on 04/17/18 09:24; Admin Dose 30 MG; Start 04/17/18 at 09:00 Quetiapine Fumarate (Seroquel) 100 mg HS PO Last administered on 04/16/18 21:32; Admin Dose 100 MG; Start 04/16/18 at 21:00 Pantoprazole (Protonix Tab) 40 mg BID@06,18 PO Last administered on 04/17/18 05:08; Admin Dose 40 MG; Start 04/16/18 at 18:00 Calcium Carbonate (Tums Ex) 750 mg PC MEALS PRN PO Pyrosis Last administered on 04/16/18 17:59; Admin Dose 750 MG; Start 04/16/18 at 17:30 JENNA ARGUETA NP Apr 17, 2018 09:50
--- NOTE | 2018-04-17 11:48 | NUR ---
JONNA NOTES: MET WITH THE PT AT THE BEDSIDE AND S/W THE [phone] ABOUT THE DC. PRIOR TO THE ADMISSION, PT HAD FWW AND ELEVATED TOILET SEAT. VERIFIED THE ADDRESS ON THE FACESHEET. PT'S DOES NOT WANT A LIST OF HH AND UNDERSTOOD SHE HAS A CHOICE OF HH. SHE AGREED TO USE [facility] [phone] DUE TO MD. THIS CM FAXED HH ORDER TO [facility] ALREADY. PT CAN BE DC HOME TODAY IF CLEARS BY . OMID RIOS CM [id number] Addendum: 04/17/18 at 1151 by OMID HENDRICKS CM Amended: Links added.
--- NOTE | 2018-04-17 16:38 | NUR ---
DISCHARGE NOTE: Pt stable for discharge. Discharge packet given to pt and spouse, verbalized understanding. IV removed, tip intact, site asymptomatic. Pt taken down to front lobby in wheelchair by Sabi BULL.
[2018-04-18] MEDS ORDERED: PANTOPRAZOLE (EC) 40 MG TAB PO SCH (06:00)
--- NOTE | 2018-04-22 07:13 | DS ---
Date/Time of Note Date/Time of Note DATE: 04/22/18 TIME: 07:12 Discharge Summary Admission/Discharge Info Admit Date/Time Apr 16, 2018 at 09:30 Discharge Date/Time Apr 17, 2018 at 16:40 Discharge Diagnosis Status post right total knee arthroplasty Patient Condition: Good Hospital Course On the day of admission, the patient underwent right total knee arthroplasty Intraoperative complications: None Postoperative complications: None The patient was given prophylactic antibiotics and anticoagulants. On the day of surgery and first postoperative day patient was started on gait training and was taught usual restrictions following knee replacement On postoperative day 1 dressing was clean dry and intact. No complications were observed. On the day of discharge, the wound was clean and healing well; there was no sign of infection. Wound care instructions were discussed with the patient. Discharge Temperature: 98 degrees Discharge White Blood Cell Count: 10.8 Discharge Hemoglobin: 11.8 The patient was discharged home with home health. Arrangements were made for visiting nurses and home health/physical therapy. The patient will be seen in office at scheduled postoperative evaluation date given on their preoperative exam. Should patient complain of any problems prior to scheduled postoperative evaluation date, they may call into outpatient clinic to determine if they need to be scheduled at sooner appointment to be seen immediately if needed. Discharge medications: As per medication reconciliation form Diet: Same as preadmission diet. This is Sameera Lujan PA-C dictating discharge summary for Dr. Dejesus. Home Meds Reported Medications Zaleplon (Zaleplon) 10 Mg Capsule, 10 MG PO HS PRN for INSOMNIA, CAP 04/06/18 Quetiapine Fumarate* (Seroquel*) 100 Mg Tablet, 100 MG PO HS, #30 TAB 04/06/18 Mirtazapine* (Remeron*) 30 Mg Tablet, 30 MG PO DAILY, TAB 04/06/18 Memantine* (Namenda*) 10 Mg Tablet, 10 MG PO BID, #60 TAB 04/06/18 Lmfol Ca/Acetyl/Mb12/Algal Oil (CEREFOLIN NAC CAPLET) 1 Each Tablet, 1 EACH PO, TAB 04/06/18 Lactobacillus Rhamnosus* (Culturelle*) 1 Each Cap.sprink, 1 CAP PO DAILY, CAP 04/06/18 Pantoprazole* (Pantoprazole*) 40 Mg Tablet.dr, 40 MG PO BID, TAB 12/17/18 Dextromethorphan Hbr/Quinidine (NUEDEXTA 20-10 MG CAPSULE) 1 Each Capsule, 1 EACH PO, CAP 04/06/18 Discontinued Reported Medications Propranolol Hcl* (Propranolol Hcl*) 20 Mg Tablet, 20 MG PO HS, TAB 04/06/18 Follow-up Plan Follow-up at postoperative appointment provided to you at your preoperative exam Primary Care Provider Not On Staff Doctor SAMEERA ROMERO PA-C Apr 22, 2018 07:12
== END 2018-04-17 16:40 | disposition home health service (06) ==
LOC: SDS 06:32 → REC 09:30 → EDSTATUS 09:51 → MS1 12:25
PROVIDERS: ADMIT Orthopaedic Surgery; ATTEND Orthopaedic Surgery
DX: M17.11 Unilateral primary osteoarthritis, right knee (principal); R00.1 Bradycardia, unspecified; F03.90 Unspecified dementia, unspecified severity, without behavioral disturbance, psychotic disturbance, mood disturbance, and anxiety
CPT/HCPCS: 27447; 73560; 80048; 85025; 86692; 86850; 86900; 86901; 88304; 88311; 97110; 97116; 97161; 97167; C1713; C1776; G0378; G8978; G8979; G8980; G8987; G8988; G8989; J0131; J0171; J0735; J1100; J1885; J2250; J2274; J2405; J2710; J2795; J3010; J3370; J7030; 87081; J0690